=== PATIENT | male | born 1985 | race African-American/Black ===

== ENCOUNTER 2023-08-11 12:21 | Emergency (ER) | payer OTHER ==
[~2023-08-11] VITALS: Ht 180.3 cm; Wt 75.0 kg
[~2023-08-11 12:21] MED LIST: DOCU250C14 MT
[2023-08-11 12:29] VITALS: O2SAT 97
[2023-08-11] MEDS ORDERED: KETOROLAC 30MG/ML VIAL IV STA (13:13)
[2023-08-11] MEDS ORDERED: SODIUM CHLORIDE 0.9% 1,000 ML IV ONE (13:15)
[2023-08-11 13:44] LABS: HEMATOCRIT. 51.3 % (42.0-52.0); HEMOGLOBIN. 16.3 g/dL (14.0-18.0); MEAN CORPUSCULAR HEMOGLOBIN 23.8 pg (28.0-32.0); MEAN CORPUSCULAR HGB CONC 31.7 g/dL (31.0-37.0); MEAN CORPUSCULAR VOLUME 75.2 fL (80.0-94.0); MEAN PLATELET VOLUME 9.5 fl (7.4-10.4); PLATELET 211 x1000/uL (130-400); RED BLOOD CELL COUNT 6.82 mill/uL (4.7-6.1); RED CELL DISTRIBUTION WIDTH 14.9 % (11.6-14.6); WHITE BLOOD COUNT 9.5 x1000/uL (4.5-11.0)
[2023-08-11 14:00] LABS: ALANINE AMINOTRANSFERASE 15 IU/L (10-49); ALBUMIN 5.1 g/dL (3.2-4.8); ASPARTATE AMINOTRANSFERASE 21 IU/L (<34); BILIRUBIN TOTAL 0.4 mg/dL (0.1-1.0); CALCIUM 9.8 mg/dL (8.7-10.4); CARBON DIOXIDE 29 mEq/L (21-32); CHLORIDE 100 mEq/L (98-107); CREATININE 1.1 mg/dL (0.6-1.3); GLUCOSE 134 mg/dL (70-105); POTASSIUM 3.3 mEq/L (3.5-5.1); PROTEIN TOTAL 8.8 g/dL (6.0-8.3); SODIUM 135 mEq/L (136-145); UREA NITROGEN BLOOD 11 mg/dL (9-23)
[2023-08-11 14:03] LABS: ETHANOL BLOOD < 10 mg/dL (<10)
[2023-08-11 14:20] LABS: DIFFERENTIAL COMMENT 1
[2023-08-11 15:03] LABS: PLATELET ESTIMATE NORMAL
[2023-08-11 15:04] LABS: MICROCYTOSIS 1+
[2023-08-11] MEDS ORDERED: IOHEXOL-300 100 ML BOTTLE ONE (15:30)
[2023-08-11] MEDS ORDERED: CEFTRIAXONE SODIUM 500MG VIAL IM ONE (18:15)
[2023-08-11] MEDS ORDERED: LIDOCAINE HCL/PF 1% 10 MG/ML 5ML VIAL INFIL ONE (18:15)
[2023-08-11] MEDS ORDERED: METR-167 MT (18:31)
[2023-08-11] MEDS ORDERED: BISM-77 PO (18:31)
[2023-08-11] MEDS ORDERED: NAPR-681 PO (18:31)
[2023-08-11] MEDS ORDERED: HYDR25SU37 RC (18:31)
[2023-08-11] MEDS ORDERED: DOCU-150 MT (18:31)
[2023-08-11] MEDS ORDERED: POTA10CA83 PO (18:31)
[2023-08-11] MEDS ORDERED: ONDA4TAB50 PO (18:31)
[2023-08-11] MEDS ORDERED: CEFTRIAXONE SODIUM 500MG VIAL IV ONE (19:15)
[2023-08-11 19:59] VITALS: BP 138/82; PULSE 70; RESP 16; TEMP 97.9
== END 2023-08-11 20:02 | disposition home or self-care (01) ==
LOC: ER 12:21
DX: K62.89 Other specified diseases of anus and rectum (principal); K64.9 Unspecified hemorrhoids; E87.6 Hypokalemia
CPT/HCPCS: 80053; 80320; 83690; 85025; 36415; 74177; 96374; 96375; 99285; Q9967; J0696; J1885; J3490; J7030; Z7610 ×4; G0480